=== PATIENT | female | born 1960 | race Caucasian/White ===

== ENCOUNTER 2021-03-24 09:54 | Emergency (ER) | payer MEDICAID ==
[~2021-03-24] VITALS: Ht 154.9 cm; Wt 51.7 kg
--- NOTE | 2021-03-24 09:55 | NUR ---
Placed in room hallway . Placed on playground monitor, blood pressure machine and pulse oximeter. To gown for exam. Side rails up.
[2021-03-24 10:00] VITALS: BP_SYST 130
--- NOTE | 2021-03-24 10:00 | NUR ---
Pt bib EMS s/p near syncopal [place] Pt became Short of breath, dizziness, n/v and arm pain. V/S stable upon arrival, no acute distress noted.
--- NOTE | 2021-03-24 10:05 | NUR ---
ER Dr. Yo at bedside examining patient.
--- NOTE | 2021-03-24 10:15 | NUR ---
Lab at bedside for blood draw.
[2021-03-24 10:39] LABS: BASOPHILS # (AUTO) 0.1 K/uL (0.0-0.2); BASOPHILS % (AUTO) 0.7 % (0.0-2.0); EOSINOPHILS % (AUTO) 0.4 % (0.0-4.0); HEMATOCRIT 40.1 % (36-48); LYMPHOCYTES # (AUTO) 1.5 K/uL (1.0-5.5); LYMPHOCYTES % (AUTO) 19.7 % (20.5-51.5); MEAN CORPUSCULAR HEMOGLOBIN 30 pg (27-31); MEAN CORPUSCULAR HGB CONC 35 % (32-36); MEAN CORPUSCULAR VOLUME 86 fL (79.0-98.0); MONOCYTES # (AUTO) 0.6 K/uL (0.0-1.0); MONOCYTES % (AUTO) 7.3 % (1.7-9.3); NEUTROPHILS # (AUTO) 5.5 K/uL (1.8-7.7); NEUTROPHILS % (AUTO) 71.9 % (40.0-70.0); PLATELET COUNT (AUTO) 294 K/uL (130-430); RED BLOOD CELL COUNT(AUTO) 4.66 MIL/uL (4.2-6.2); RED CELL DISTRIBUTION WIDTH 12.9 % (9.0-15.0); WHITE BLOOD COUNT (AUTO) 7.6 K/uL (4.8-10.8)
[2021-03-24 10:44] LABS: CALCIUM 9.3 mg/dL (8.4-11.0); CREATININE 0.73 mg/dL (0.55-1.30); POTASSIUM 3.8 mmol/L (3.5-5.1)
[2021-03-24 10:50] LABS: ALBUMIN 3.5 g/dL (3.4-4.8); TOTAL BILIRUBIN 0.3 mg/dL (0.0-1.0)
[2021-03-24] MEDS ORDERED: LORazepam 1 MG TABLET PO ONE (11:00)
[2021-03-24 13:04] VITALS: BP_SYST 130
--- NOTE | 2021-03-24 13:05 | NUR ---
Patient given written and verbal discharge instructions and verbalizes understanding. ER MD discussed with patient the results and treatment provided. Patient in stable condition. ID arm band removed. No prescriptions given. Patient educated on pain management and to follow up with PMD. Pain Scale 0. Opportunity for questions provided and answered. Medication side effect fact sheet provided.
== END 2021-03-24 13:05 | disposition home or self-care (01) ==
LOC: SED 09:54 → EDBD 09:54 → SED 13:05
DX: R42 Dizziness and giddiness (principal); F41.9 Anxiety disorder, unspecified; R06.4 Hyperventilation
CPT/HCPCS: 36415; 71045; 80053; 80061; 83880; 84484; 85025; 93005; 99285